=== PATIENT | female | born 2000 ===

== ENCOUNTER 2022-09-06 21:56 | Emergency (ER) | payer OTHER, MEDICAID | END 2022-09-06 22:20 | disposition home or self-care (01) | LOC: MW.ED 21:56 | DX: Z04.1 Encounter for examination and observation following transport accident (principal); Z02.89 Encounter for other administrative examinations; Z90.49 Acquired absence of other specified parts of digestive tract; V89.9XXA Person injured in unspecified vehicle accident, initial encounter; Y92.410 Unspecified street and highway as the place of occurrence of the external cause | CPT/HCPCS: 99283 ==